=== PATIENT | female | born 1960 | race Caucasian/White ===

== ENCOUNTER 2018-09-14 16:05 | Inpatient (IN) | payer BC ==
[~2018-09-14] VITALS: Ht 162.6 cm; Wt 55.5 kg
[~2018-09-14 16:05] MED LIST: ACET1TAB12 PO; DIAZ5TAB PO
[2018-09-14 19:50] VITALS: BP 134/77
--- NOTE | 2018-09-14 22:03 | NUR ---
NURSING ADMIT NOTE: LEGAL HOLD: 5150 for GD. Dx: Mood Disorder NOS. Report received from Josiah Winkler RN and medical record. ASSESSMENT: THIS SHIFT: Client was BIB spouse with anxiety, pressured speech, and reporting she felt like she was having a "nervous breakdown". Client denies SI/HI and AH/VH. No prior inpatient psych admits. Client arrived on unit at 19:45 accompanied by DESTIN Morrissey via wheelchair. Personal belongings were inventoried with client by Marian Ybarra. Client was pleasant and cooperative, tearful at times. Client has pressured speech and gives lengthy verbal responses. Client reported feeling overwhelmed by family stress. Clients' 38 yo quadriplegic daughter moved into clients home four days ago and client is primary caregiver. Client has a 24 yo Autistic son living at home and her grandchildren are at her home. Client reported, "I stay up late to have time to myself." Client has been drinking 4 oz - 8 oz Rum at night to relax. Client is concerned that her cat might eat her grandsons pet rat and her grandson would "end up hating the cat". Client worries about numerous issues within the family. S/I, H/I: Denies A/VH: Denies Sleep: Insomnia ADL's: Independent Group attendance: N/A Were meds taken: In ED Any med S/E: None reported MENTAL STATUS EXAM: Appearance: Neat and appropriate Eye contact: Direct Behavior: Cooperative, tearful at times Speech: Pressured Mood: Anxious/Depressed Affect: Anxious Thought process: Linear and connected Thought Content: Family stressors Insight: Fair Judgment: Fair INTERVENTIONS: PRN's used: NO Therapeutic interventions: 1:1 support, Therapeutic listening, Q 15 min checks for safety, Meds Restraints/seclusion/emergency medication: No Justification of Continued Inpatient Treatment: Client is unable to function as a result of increased stress and anxiety. Client is overwhelmed. Client would be a high risk for readmission at this time.
[2018-09-14] MEDS: nicotine prolacrilex 2mg gum BC PRN (22:13)
[2018-09-14] MEDS ORDERED: mag hydrox/Alum hydrox/simeth 30ml oral suspension PO PRN (23:00)
[2018-09-14] MEDS ORDERED: magnesium hydroxide 30ml (MOM) UD suspension PO PRN (23:00)
[2018-09-14] MEDS ORDERED: acetaminophen 325mg tablet PO PRN ×2 (23:00)
[2018-09-14] MEDS ORDERED: hydrOXYzine 25 MG tablet PO PRN (23:05)
[2018-09-15] MEDS ORDERED: diazepam 5mg tablet PO PRN ×2 (05:05)
[2018-09-15] MEDS ORDERED: acetaminophen w/codeine (30MG) #3 tablet PO PRN (05:05)
[2018-09-15] MEDS: nicotine prolacrilex 2mg gum BC PRN ×2 (07:47→11:27)
[2018-09-15 07:57] LABS: CHOL/HDL RATIO 3.4 (0.00-4.99); CHOLESTEROL 169 MG/DL (0-200); HDL CHOLESTEROL 49 MG/DL (35-60); LDL CHOLESTEROL 106 MG/DL (50-100); TRIGLYCERIDES 65 MG/DL (20-135)
[2018-09-15 08:00] VITALS: BP 94/57
[2018-09-15] MEDS ORDERED: acetaminophen w/codeine (30MG) #3 tablet PO SCH (08:00)
[2018-09-15 08:09] LABS: HEMOGLOBIN A1C 5.1 % (4.5-6.2)
[2018-09-15] MEDS ORDERED: tuberculin, purif. prot. deriv. 5 units/0.1ml ID ONE (10:00)
[2018-09-15] MEDS ORDERED: potassium Cl 20 mEq SR tablet PO ONE (10:35)
[2018-09-15] MEDS ORDERED: divalproex sodium 500mg tablet.DR PO SCH (11:00)
[2018-09-15] MEDS ORDERED: ACET-3067 PO (13:06)
--- NOTE | 2018-09-15 14:10 | NUR ---
Discharge Note: Pt discharged at 1400 to her home via personal vehicle. She left [facility] ambulatory, accompanied by her . No S&S of distress. Discharge instructions given. Pt's possessions inventoried and sent with the pt. Community crisis service information and national suicide hotline handout given. Pt denies depression, SI, A/V H. She was cooperative with assessment. She is able to independently complete ADLs. She was not in acute physical or emotional distress. MENTAL STATUS EXAM: Appearance: Neat and appropriate Eye contact: Direct Behavior: Cooperative Speech: Normal rate and rhythm Mood: Anxious to go home Affect: Appropriate Thought process: Linear and connected Thought Content: Family stressors Insight: Good Judgment: Good
== END 2018-09-15 14:00 | disposition home or self-care (01) | DRG 882 ==
LOC: ADULT MH 16:05
PROVIDERS: ADMIT Psychiatry & Neurology Psychiatry; ATTEND Psychiatry & Neurology Psychiatry
DX: F43.9 Reaction to severe stress, unspecified (principal); F17.210 Nicotine dependence, cigarettes, uncomplicated; G89.29 Other chronic pain; R31.9 Hematuria, unspecified; Z88.1 Allergy status to other antibiotic agents; Z88.7 Allergy status to serum and vaccine; Z88.8 Allergy status to other drugs, medicaments and biological substances; Z79.899 Other long term (current) drug therapy; Z90.710 Acquired absence of both cervix and uterus; Z90.49 Acquired absence of other specified parts of digestive tract; Z72.89 Other problems related to lifestyle; Z81.8 Family history of other mental and behavioral disorders; Z81.1 Family history of alcohol abuse and dependence
CPT/HCPCS: 36415; 80061; 83036; 87070; 99285

== ENCOUNTER 2023-08-26 11:09 | Outpatient (CLI) | payer MEDICAID ==
[~2023-08-26 11:09] MED LIST changes: +ACET-2 PO; -ACET1TAB12 PO
[2023-08-26 11:57] LABS: ALANINE AMINOTRANSFERASE 38 U/L (12-78); ALBUMIN 3.9 G/DL (3.4-5.0); ALBUMIN/GLOBULIN RATIO 1.2 (1.1-1.5); ALKALINE PHOSPHATASE 63 IU/L (46-116); ANION GAP 6 (8-16); ASPARTATE AMINO TRANSFERASE 34 U/L (10-37); BLOOD UREA NITROGEN 5 MG/DL (7-18); BUN/CREATININE RATIO 7.5 (10.0-20.0); CALCIUM 8.7 MG/DL (8.5-10.1); CHLORIDE 102 MMOL/L (99-107); CREATININE 0.67 MG/DL (0.40-0.90); GLUCOSE 108 MG/DL (70-104); POTASSIUM 3.6 MMOL/L (3.5-5.1); SODIUM 138 MMOL/L (135-145); TOTAL CARBON DIOXIDE 30.2 MMOL/L (24-32); TOTAL PROTEIN 7.1 G/DL (6.4-8.2); eGFR 89 ML/MIN
[2023-08-26] MEDS ORDERED: iohexol 300mg/ml 100ml inj. ONE (12:43)
== END 2023-08-26 23:59 | disposition home or self-care (01) ==
LOC: RAD 11:09
PROVIDERS: ATTEND General Practice
DX: R19.7 Diarrhea, unspecified (principal); Z90.49 Acquired absence of other specified parts of digestive tract
CPT/HCPCS: 36415; 74170; 80053; J3490; Q9967